=== PATIENT | male | born 1975 | race Hispanic/Latino ===

== ENCOUNTER 2018-03-30 13:44 | Emergency (ER) | payer OTHER, BC ==
[2018-03-30 13:48] VITALS: RESP 16; TEMP 98.2
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
[2018-03-30] MEDS ORDERED: Lidocaine 5% Patch TD STA (15:29)
[2018-03-30] MEDS ORDERED: Lidocaine 5% Patch TD ONE (15:49)
[2018-03-30 15:53] VITALS: BP 137/81; PULSE 71
[2018-03-30 18:48] VITALS: O2SAT 96
== END 2018-03-30 15:53 | disposition home or self-care (01) ==
LOC: H.ER 13:44
DX: S13.4XXA Sprain of ligaments of cervical spine, initial encounter (principal); M54.5 Low back pain; M54.40 Lumbago with sciatica, unspecified side; V43.52XA Car driver injured in collision with other type car in traffic accident, initial encounter
CPT/HCPCS: 72100; 72125; 96372; 99283; J1885